=== PATIENT | male | born 1995 | race Caucasian/White ===

== ENCOUNTER 2019-09-25 20:12 | Emergency (ER) | payer MEDICAID ==
[~2019-09-25] VITALS: Ht 182.9 cm; Wt 63.6 kg
[2019-09-25 20:15] VITALS: BP 175/96
--- NOTE | 2019-09-25 20:46 | NUR ---
-crepitus, -stepoffs. + limited rom during back assessment
[2019-09-25] MEDS ORDERED: ondansetron 4mg rapidly disintigrating tab PO ONE (21:15)
[2019-09-25] MEDS ORDERED: HYDROcodone/acetaminophen 10/325mg tab PO ONE (21:15)
[2019-09-25] MEDS ORDERED: ketorolac tromethamine 15mg/ml inj. IM ONE (21:15)
== END 2019-09-25 22:00 | disposition home or self-care (01) ==
LOC: ER 20:14
DX: M54.89 Other dorsalgia (principal); G89.29 Other chronic pain
CPT/HCPCS: 96372; 99283; J1885